=== PATIENT | female | born 1965 | race Caucasian/White ===

== ENCOUNTER → 2018-08-08 | Outpatient (CLI) | payer BC ==
--- NOTE | ~2018-08-08 | 2DMMODE ---
[facility] [address] [place] [address] 2 D/M-MODE ECHOCARDIOGRAM Name: CIRILOCHARLENEDerekTEVIN TEOFILO Room #: REG [facility]#: [id number] Admission: 08/08/18 Attend Phys: Giovanni Little MD Discharge: Date of : 61 Date of Service: 08/08/18 1514 Report #: [id number] THIS REPORT FOR: //name// APPROVED REPORT Study performed: 08/08/2018 12:52:48 EXAM: Comprehensive 2D, Doppler, and color-flow Echocardiogram Patient Location: Out-Patient Room #: Echo lab 2 Status: routine BSA: 1.60 HR: 74 bpm BP: 132/66 mmHg Rhythm: NSR Other Information Study Quality: Good Risk Factors: Cardiac Risk Factors: FHX of CAD Indications Atrial Fibrillation WPW SP Cardiac Arrest, SP ABlation 2D Dimensions RVDd: 34.94 mm IVSd: 5.85 (7-11mm) LVOT Diam: 19.27 (18-24mm) LVDd: 45.51 mm PWd: 8.34 (7-11mm) LVDs: 29.56 (25-40mm) Aortic Root: 22.02 mm IVC: 13.00 mm Volumes Left Atrial Volume (Systole) Single Plane 4CH: 28.37 mL Single Plane 2CH: 47.94 mL LA ESV Index: 29.00 mL/m2 Aortic Valve AoV Peak Mikal.: 1.55 m/s AO Peak Gr.: 9.63 mmHg LVOT Max P.05 mmHg LVOT Max V: 1.33 m/s MILADY Vmax: 2.49 cm2 [facility] [address] [place] [address] 2 D/M-MODE ECHOCARDIOGRAM Name: TEVIN SLATER Room #: REG CL [facility]#: [id number] Admission: 08/08/18 Attend Phys: Giovanni Little MD Discharge: Date of : 61 Date of Service: 08/08/18 1514 Report #: [id number] Mitral Valve E/A Ratio: 1.0 MV Decel. Time: 130.83 ms MV E Max Mikal.: 1.04 m/s MV A Mikal.: 1.05 m/s MV PHT: 37.94 ms IVRT: 78.43 ms Pulmonary Valve PV Peak Mikal.: 1.25 m/s PV Peak Gr.: 6.25 mmHg Pulmonary Vein P Vein S: 0.48 m/s P Vein A: 0.31 m/s P Vein D: 0.62 m/s P Vein A Dur.: 110.7 msec P Vein S/D Ratio: 0.77 Tricuspid Valve TR Peak Mikal.: 2.53 m/s TR Peak Gr.: 25.65 mmHg PA Pressure: 30.00 mmHg Left Ventricle The left ventricle is normal size. There is normal LV segmental wall motion. There is normal left ventricular wall thickness. The left ventricular systolic function is normal. The left ventricular ejection fraction is within the normal range. LVEF is 55-60%. The left ventricular diastolic function is normal. Right Ventricle The right ventricle is normal size. The right ventricular systolic function is normal. Atria The left atrium size is normal. The right atrium size is normal. Aortic Valve The aortic valve is normal in structure. No aortic regurgitation is present. There is no aortic valvular stenosis. Mitral Valve The mitral valve is normal in structure. Trace mitral regurgitation. No evidence of mitral valve stenosis. Tricuspid Valve The tricuspid valve is normal in structure. There is trace tricuspid [facility] [address] [place] [address] 2 D/M-MODE ECHOCARDIOGRAM Name: TEVIN SLATER Room #: REG [facility]#: [id number] Admission: 08/08/18 Attend Phys: Giovanni Little MD Discharge: Date of : 61 Date of Service: 08/08/18 1514 Report #: [id number] regurgitation. Pulmonic Valve The pulmonary valve is normal in structure. There is no pulmonic valvular regurgitation. Great Vessels The aortic root is normal in size. IVC is normal in size and collapses >50% with inspiration. Pericardium There is no pericardial effusion. <Conclusion> The left ventricle is normal size. There is normal left ventricular wall thickness. The left ventricular systolic function is normal. The right ventricle is normal size. The left atrium size is normal. The aortic valve is normal in structure. Trace mitral regurgitation. There is trace tricuspid regurgitation. There is no pericardial effusion. <ELECTRONICALLY SIGNED> By: Giovanni Little MD 08/08/18 1514 1514 1514 Giovanni Little MD /INF
--- NOTE | ~2018-08-08 | EXE ---
[facility] [place] [place] [address] STRESS ECHOCARDIOGRAM Name: TEVIN SLATER Room #: REG CL [facility]#: [id number] Admission: 08/08/18 Attend Phys: Giovanni Little MD Discharge: Date of : 61 Date of Service: 08/08/18 1518 Report #: [id number] THIS REPORT FOR: //name// APPROVED REPORT Study performed: 08/08/2018 14:08:07 Exam: Stress Echocardiogram Indication: Pre-Operative CV evaluation Patient Location: Out-Patient Stress Nurse: Tracey Quinn RN Room #: Echo lab 2 Status: routine Ht: 5 ft 4 in HR: 74 bpm BP: 132/66 mmHg Rhythm: NSR Medical History Medical History: Atrial Fibrillation, WPW, SP Cardiac Arrest, SP Ablation Cardiac Risk Factors: FHX of CAD Exercise History: Physically active Procedure The patient underwent an Exercise Stress Test using the Esequiel Protocol. Blood pressure, heart rate, and EKG were monitored. An Echocardiogram was performed by electronics repair technician in four stages in quad fashion. At peak stress, four selected images were obtained and placed side by side with resting images for comparison. Stress Test Details Stress Test: Exercise stress testing was performed using a Esequiel protocol. HR Resting HR: 74 bpm Max Heart Rate (APMHR): 166 bpm Max HR Achieved: 164 bpm Target HR (85% APMHR): 141 bpm % of APMHR: 98 Recovery HR: 97 bpm HR response to stress: Normal HR response to stress BP Resting BP: 132/66 mmHg Max BP: 160/70 mmHg Recovery BP: 130/[address] [facility] [place] [place] [address] [place] [address] STRESS ECHOCARDIOGRAM Name: TEVIN SLATER Room #: REG CL [facility]#: [id number] Admission: 08/08/18 Attend Phys: Giovanni Little MD Discharge: Date of : 61 Date of Service: 08/08/18 1518 Report #: [id number] Resting ECG: Sinus Rhythm Stress ECG: Sinus Rhythm, nonspecific ST-T abnormalities ST Change: Non-ischemic Clinical Reason for Termination: Maximal effort Exercise duration: 8 min sec Highest Stage Achieved: Stage 3: 3.4 mph at 14% grade. Exercise capacity: 10.1 METs Overall Exercise Capacity for Age: Good Pre-Stress Echo The resting Echocardiogram showed normal left ventricular contractility with an estimated Ejection Fraction of about 55-60%. Normal wall motion in all segments on baseline images. Post-Stress Echo The stress Echocardiogram showed normal left ventricular contractility with an estimated Ejection Fraction of about 65-70%. Normal augmentation of wall motion in all segments on post stress images. Clinical Normal augmentation of myocardial wall segments using a 17 segment model. No clinical or ECG evidence for ischemia. Conclusion Clinical Response: Non-ischemic Exercise Capacity: Average Stress ECG Response: Non-ischemic Stress Echo Images: Non-ischemic The left ventricle is normal in size and wall thickness in both the rest and stress images. No prior study available for comparison. Other Information Study Quality: Good <Conclusion> [facility] [place] [place] [address] [place] [address] STRESS ECHOCARDIOGRAM Name: CIRILOKIANNATEVIN TEOFILO Room #: REG [facility]#: [id number] Admission: 08/08/18 Attend Phys: Giovanni Little MD Discharge: Date of : 61 Date of Service: 08/08/181517 Report #: [id number] The left ventricle is normal in size and wall thickness in both the rest and stress images. <ELECTRONICALLY SIGNED> By: Giovanni Little MD 08/08/188 17 17 Giovanni Little MD /INF
== END ==
LOC: CV 12:44
DX: Z01.810 Encounter for preprocedural cardiovascular examination (principal); I48.91 Unspecified atrial fibrillation

== ENCOUNTER → 2020-08-19 | Outpatient (CLI) | payer OTHER | LOC: CAT 10:20 | PROVIDERS: ATTEND Internal Medicine Cardiovascular Disease | DX: Z13.6 Encounter for screening for cardiovascular disorders (principal); E78.00 Pure hypercholesterolemia, unspecified; I25.10 Atherosclerotic heart disease of native coronary artery without angina pectoris ==